=== PATIENT | female | born 1975 ===

== ENCOUNTER 2022-06-17 12:45 | Inpatient (IN) | payer OTHER ==
[~2022-06-17] VITALS: Ht 167.6 cm; Wt 64.9 kg
[2022-06-19] MEDS ORDERED: ATORVASTATIN CA40 MG (09:00)
== END 2022-06-19 11:06 | disposition home or self-care (01) | DRG 735 ==
LOC: ADM 12:45 → EDSTATUS 12:45 → O/R 06-18 08:10 → SURG 06-18 11:00 → EDBD 06-18 12:45 → SURG 06-18 12:45 → OB/GYN 06-18 19:18
PROVIDERS: ADMIT Obstetrics & Gynecology Gynecologic Oncology; ATTEND Obstetrics & Gynecology Gynecologic Oncology
PROC: 07TC4ZZ Resection of Pelvis Lymphatic, Percutaneous Endoscopic Approach (ICD-10-PCS; 2022-06-18)
PROC: 0UT74ZZ Resection of Bilateral Fallopian Tubes, Percutaneous Endoscopic Approach (ICD-10-PCS; 2022-06-18)
PROC: 0UT94ZZ Resection of Uterus, Percutaneous Endoscopic Approach (ICD-10-PCS; principal; 2022-06-18 11:00)
DX: D25.1 Intramural leiomyoma of uterus (principal); D25.2 Subserosal leiomyoma of uterus; N80.0 Endometriosis of uterus; N72 Inflammatory disease of cervix uteri; Z20.822 Contact with and (suspected) exposure to COVID-19